=== PATIENT | female | born 1990 | race Caucasian/White ===

== ENCOUNTER 2017-11-14 11:42 | Emergency (ER) | payer MEDICAID, OTHER ==
--- NOTE | 2017-11-14 12:32 | ED Physician Documentation ---
History of Present Illness - Stated complaint Stated Complaint: LEFT SHOULDER INJ - Chief complaint Chief Complaint: General - History obtained from History obtained from: Patient - History of Present Illness Timing: Other (She was doing a hand stand last night and came down directly on the left shoulder and has moderate left shoulder pain and difficulty with movement ever since. No other injury) Review of Systems Constitutional: reports: Reviewed and negative Throat: reports: Reviewed and negative Cardiac: reports: Reviewed and negative PD PAST MEDICAL HISTORY - Past Medical History Past Medical History: Yes Cardiovascular: None Respiratory: None Endocrine/Autoimmune: None Psych: None Musculoskeletal: None Other Past Medical History: Hx of stg4 melanoma - Past Surgical History Past Surgical History: Yes /[employer]: section Derm: Skin cancer surgery - Present Medications Home Medications: Ambulatory Orders Medication Instructions Recorded Confirmed No Known Home Medications [No 11/14/17 11/14/17 Known Home Medications] - Allergies Allergies/Adverse Reactions: Allergies Allergy/AdvReac Type Severity Reaction Status Date / Time cephalexin [From Keflex] Allergy Edema Verified 11/14/17 11:48 - Social History Does the pt smoke?: No Smoking Status: Never smoker PD ED PE NORMAL - Vitals Vital signs reviewed: Yes - General General: Alert and oriented X 3, No acute distress - Neck Neck: Supple, no meningeal sign, No bony TTP - Extremities Extremities: Other (Left shoulder is mildly tender across the top, and the clavicle itself is nontender without deformity. She is able to abduct to 90 with good internal and external rotation. NVI in the hand and over the deltoid. ) - Neuro Neuro: Alert and oriented X 3, Normal speech Results - Vitals Vitals: Vital Signs - 24 hr 11/14/17 11/14/17 11:46 13:01 Temperature 36.6 C 36.2 C L Heart Rate 84 70 Respiratory 16 18 Rate Blood Pressure 135/79 H 123/63 O2 Saturation 100 100 Oxygen O2 Source Room air - Rads (name of study) L shoulder 3v Radiology: EMP read contemporaneously (13 mm AC separation) PD MEDICAL DECISION MAKING - ED course ED course: The patient and family were counseled as to the diagnosis and need for follow- up. I counseled the patient with regard to signs and symptoms that would necessitate an urgent reevaluation in the emergency department. They understand they are welcome to return at any time if worse or if not improving as expected. This document was made in part using voice recognition software. While efforts are made to proofread this documents, sound alike and grammatical errors may occur. - Sepsis Event Vital Signs: Vital Signs - 24 hr 11/14/17 11/14/17 11:46 13:01 Temperature 36.6 C 36.2 C L Heart Rate 84 70 Respiratory 16 18 Rate Blood Pressure 135/79 H 123/63 O2 Saturation 100 100 Oxygen O2 Source Room air Departure - Departure Disposition: 01 Home, Self Care Clinical Impression: Separation of left acromioclavicular joint, type 2 Qualifiers: Encounter type: initial encounter Qualified Code(s): S43.102A - Unspecified dislocation of left acromioclavicular joint, initial encounter Condition: Good Record reviewed to determine appropriate education?: Yes Instructions: ED Sprain AC Joint Follow-Up: [facility] [Provider Group] - Within 1 week Comments: Ibuprofen as needed for pain, do not wear the sling for more than a couple of days. Move it around gently to maintain range of motion. Return if worsening or for new symptoms. Your blood pressure was elevated today on check into the emergency department. This does not mean that you have hypertension, it is a common phenomenon to come to the emergency department and have elevated blood pressure. I recommend that you see your primary care physician within the week to have it rechecked when you are feeling better. Discharge Date/Time: 11/14/17 13:01
--- NOTE | 2017-11-14 12:39 | XRAY Report ---
Procedure Date: 11/14/2017 Accession Number: [id number] / [id number] Procedure: XR - Shoulder 3 View LT CPT Code: FULL RESULT: EXAM: LEFT SHOULDER RADIOGRAPHY EXAM DATE: 11/14/2017 12:22 PM. CLINICAL HISTORY: Injury. Fall while performing handstand. COMPARISON: None. TECHNIQUE: 4 views. FINDINGS: Bones: Normal. No fracture or bone lesion. Joints: Distal left clavicle is elevated relative to acromion with 13 mm coracoclavicular interval. Soft tissues: The visualized hemithorax is unremarkable. No soft tissue swelling. IMPRESSION: Left acromioclavicular joint injury. [facility]
[2017-11-14 13:02] VITALS: BP 123/63
== END 2017-11-14 13:01 | disposition home or self-care (01) ==
LOC: ED 11:42
DX: S43.102A Unspecified dislocation of left acromioclavicular joint, initial encounter (principal); W22.09XA Striking against other stationary object, initial encounter
CPT/HCPCS: 99283

== ENCOUNTER 2018-11-28 08:00 | Outpatient (CLI) | payer OTHER ==
[2018-11-28 18:51] LABS: BASOPHILS % (AUTO) 0.9 %; EOSINOPHILS # (AUTO) 0.1 10^3/uL (0.0-0.7); EOSINOPHILS % (AUTO) 3.2 %; HGB - HEMOGLOBIN 13.8 g/dL (12.0-16.0); MEAN CORPUSCULAR HEMOGLOBIN 30.8 pg (27.0-31.0); MEAN CORPUSCULAR HGB CONC 32.2 g/dL (32.0-36.0); MEAN CORPUSCULAR VOLUME 95.8 fL (81.0-99.0); MEAN PLATELET VOLUME 12.9 fL (7.9-10.8); MONOCYTES # (AUTO) 0.4 10^3/uL (0.0-1.0); MONOCYTES % (AUTO) 9.8 %; NEUTROPHILS # (AUTO) 1.8 10^3/uL (1.5-6.6); NEUTROPHILS % (AUTO) 40.9 %; PLT - PLATELET COUNT 201 10^3/uL (130-450); RED BLOOD COUNT 4.48 10^6/uL (4.20-5.40); RED CELL DISTRIBUTION WIDTH 12.6 % (12.0-15.0); WHITE BLOOD COUNT 4.4 x10^3/uL (4.8-10.8)
[2018-11-28 19:01] LABS: ALBUMIN 4.3 g/dL (3.2-5.5); ALBUMIN/GLOBULIN RATIO 1.3 (1.0-2.2); BILIRUBIN,TOTAL 0.7 mg/dL (0.2-1.0); CALCIUM 9.5 mg/dL (8.5-10.3); CREATININE 0.6 mg/dL (0.4-1.0); TOTAL PROTEIN 7.5 g/dL (6.7-8.2)
[2018-11-28 19:32] LABS: HB2 TOTAL 14.1 g/dL; HEMOGLOBIN A1C 0.46 g/dL; HEMOGLOBIN A1C % 5.1 % (4.6-6.2)
== END 2018-11-28 23:59 | disposition home or self-care (01) ==
LOC: LAB.WCP 08:00
PROVIDERS: ATTEND Physician Assistant
DX: Z00.00 Encounter for general adult medical examination without abnormal findings (principal); Z13.1 Encounter for screening for diabetes mellitus; N92.6 Irregular menstruation, unspecified
CPT/HCPCS: 36415; 80053; 83036; 84443; 85025